=== PATIENT | female | born 1985 | race Caucasian/White ===

== ENCOUNTER 2021-05-28 15:13 | Inpatient (IN) | payer OTHER ==
[~2021-05-28] VITALS: Ht 165.1 cm; Wt 78.6 kg
[2021-05-28 15:41] VITALS: BP 145/89
[2021-05-28] MEDS ORDERED: MISOPROSTOL 25 MCG TABLET VG PRN (16:30)
[2021-05-28] MEDS ORDERED: FENTANYL PF 100 MCG/2ML IV PRN (16:30)
[2021-05-28] MEDS ORDERED: OXYTOCIN 30U/ 0.9% NaCL 500ML 500 ML IV PRN (16:30)
[2021-05-28] MEDS ORDERED: FENTANYL PF 100 MCG/2ML IVPush PRN (16:30)
[2021-05-28] MEDS ORDERED: OXYTOCIN 30U/ 0.9% NaCL 500ML 500 ML IV ONE (16:30)
[2021-05-28] MEDS ORDERED: TERBUTALINE 1 MG/ML, 1ML IVPush PRN (16:30)
[2021-05-28] MEDS ORDERED: D5%-LACTATED RINGERS 1,000 ML IV SCH (16:30)
[2021-05-28] MEDS ORDERED: TERBUTALINE 1 MG/ML, 1ML SQ PRN (16:30)
[2021-05-28] MEDS ORDERED: LACTATED RINGERS 1,000 ML IV SCH ×2 (16:30→22:30)
[2021-05-28 16:58] LABS: BASOPHILS % (AUTO) 0 % (0-1); EOSINOPHILS % (AUTO) 1 % (1-7); LYMPHOCYTES % (AUTO) 20 % (22-44); MEAN CORPUSCULAR HGB CONC 34.2 g/dL (32.4-35.8); MEAN PLATELET VOLUME 9.2 fL (7.4-10.4); MONOCYTES % (AUTO) 5 % (2-9); NEUTROPHILS % (AUTO) 74 % (42-75); PLATELET COUNT 218 x10^3/uL (130-400); RED BLOOD COUNT 4.46 x10^6/uL (3.82-5.3); RED CELL DISTRIBUTION WIDTH 13.4 % (9.6-15.2)
[2021-05-28] MEDS ORDERED: LIDOCAINE 1%, 20ML ONE (17:46)
[2021-05-28] MEDS ORDERED: NEWBORN KIT ONE (17:46)
[2021-05-28] MEDS ORDERED: MISOPROSTOL 200 MCG TABLET ONE (17:46)
[2021-05-28 18:35] LABS: ALANINE AMINOTRANSFERASE 17 U/L (12-78); ALBUMIN 2.9 g/dL (3.4-5.0); ANION GAP 9 mmol/L (5-15); BILIRUBIN, DIRECT 0.1 mg/dL (0.1-0.2); CHLORIDE 107 mmol/L (98-107); CREATININE 0.66 mg/dL (0.55-1.02)
[2021-05-28 18:39] LABS: ALKALINE PHOSPHATASE 196 U/L (45-117); BILIRUBIN,TOTAL 0.3 mg/dL (0.2-1.0); TOTAL PROTEIN 6.8 g/dL (6.4-8.2)
[2021-05-28] MEDS ORDERED: LEVO150T PO (18:43)
[2021-05-28] MEDS ORDERED: FLUT1AER INH (18:48)
[2021-05-28] MEDS ORDERED: CETI10CA PO (18:48)
[2021-05-28] MEDS ORDERED: ALBU0.63 NEB (18:50)
[2021-05-28 18:54] LABS: TOTAL PROTEIN,URINE RANDOM < 5 mg/dL (0-12)
[2021-05-28] MEDS ORDERED: FENTANYL/BUPIV./NS/PF 250 ML EPIDCONT ONE (21:54)
[2021-05-28] MEDS ORDERED: LIDOCAINE-MPF 2% ,5ML ONE (22:03)
[2021-05-28] MEDS ORDERED: FENTANYL/BUPIV./NS/PF 250 ML EPIDCONT SCH (22:30)
[2021-05-28] MEDS ORDERED: NALOXONE 0.4 MG/ML, 1ML IVPush PRN (22:30)
[2021-05-28] MEDS ORDERED: EPHEDRINE 50 MG/ML, 1ML IVPush PRN (22:30)
[2021-05-28] MEDS ORDERED: LACTATED RINGERS 1,000 ML IVBOLUS PRN (22:30)
[2021-05-29] MEDS: OXYTOCIN 30U/ 0.9% NaCL 500ML 500 ML IV SCH ×2 (00:46→12:00)
[2021-05-29] MEDS ORDERED: HYDROcodone/APAP 5/325 TABLET PO PRN (02:00)
[2021-05-29] MEDS ORDERED: BISACODYL 10 MG SUPP PR PRN (02:00)
[2021-05-29] MEDS ORDERED: OXYcodone/APAP 5/325MG TABLET PO PRN (02:00)
[2021-05-29] MEDS ORDERED: MISOPROSTOL 200 MCG TABLET PR PRN (02:00)
[2021-05-29] MEDS ORDERED: RHOGAM FROM BLOOD BANK 1 NOTE EA IM/IV ONE (02:00)
[2021-05-29] MEDS ORDERED: IBUPROFEN 800 MG TABLET PO PRN (02:00)
[2021-05-29] MEDS ORDERED: DOCUSATE 100 MG CAPSULE PO PRN (02:00)
[2021-05-29] MEDS ORDERED: ONDANSETRON 2MG/ML, 2ML IV PRN (02:00)
[2021-05-29] MEDS ORDERED: ACETAMINOPHEN 325 MG TABLET PO PRN (02:00)
[2021-05-29 03:05] VITALS: BP 127/84
[2021-05-29] MEDS ORDERED: IBUPROFEN 600 MG TABLET PO PRN (03:28)
[2021-05-29] MEDS ORDERED: IBUPROFEN 600 MG TABLET ONE (03:30)
[2021-05-29 09:00] VITALS: BP 143/88
[2021-05-29] MEDS ORDERED: PRENATAL VIT/IRON/FA 1 EACH TABLET PO SCH (09:00)
[2021-05-29 09:26] LABS: BASOPHILS % (AUTO) 0 % (0-1); EOSINOPHILS % (AUTO) 0 % (1-7); LYMPHOCYTES % (AUTO) 11 % (22-44); MEAN CORPUSCULAR HEMOGLOBIN 30.9 pg (27.0-34.8); MEAN CORPUSCULAR HGB CONC 33.7 g/dL (32.4-35.8); MONOCYTES % (AUTO) 6 % (2-9); NEUTROPHILS % (AUTO) 82 % (42-75); PLATELET COUNT 191 x10^3/uL (130-400); RED BLOOD COUNT 4.26 x10^6/uL (3.82-5.3); RED CELL DISTRIBUTION WIDTH 13.5 % (9.6-15.2)
[2021-05-29 12:00] VITALS: BP 129/77
[2021-05-29 15:30] VITALS: BP 128/85
== END 2021-05-29 18:15 | disposition home or self-care (01) | DRG 807 ==
LOC: LDIP 15:56 → 2NW 05-29 02:40
PROVIDERS: ADMIT Obstetrics & Gynecology; ATTEND Obstetrics & Gynecology
PROC: 3E0P7VZ Introduction of Hormone into Female Reproductive, Via Natural or Artificial Opening (ICD-10-PCS; 2021-05-28)
PROC: 10E0XZZ Delivery of Products of Conception, External Approach (ICD-10-PCS; principal; 2021-05-29)
PROC: 0KQM0ZZ Repair Perineum Muscle, Open Approach (ICD-10-PCS; 2021-05-29)
PROC: 3E0R3BZ Introduction of Anesthetic Agent into Spinal Canal, Percutaneous Approach (ICD-10-PCS; 2021-05-29)
PROC: 00HU33Z Insertion of Infusion Device into Spinal Canal, Percutaneous Approach (ICD-10-PCS; 2021-05-29)
DX: O77.0 Labor and delivery complicated by meconium in amniotic fluid (principal); Z37.0 Single live birth; Z88.1 Allergy status to other antibiotic agents; Z3A.39 39 weeks gestation of pregnancy; Z20.822 Contact with and (suspected) exposure to COVID-19; Z96.652 Presence of left artificial knee joint; O70.1 Second degree perineal laceration during delivery; Z88.2 Allergy status to sulfonamides; O13.4 Gestational [pregnancy-induced] hypertension without significant proteinuria, complicating childbirth
CPT/HCPCS: 36415; J3490; 80053; 82248; 82570; 84156; 84550; 85025; 86592; 86850; 86900; 87635; G0378; J2590; J3010; J7120